=== PATIENT | male | born 1960 | race Caucasian/White ===

== ENCOUNTER → 2018-07-13 07:18 | Outpatient (CLI) | payer BC, OTHER, SELFPAY ==
[2018-07-13 08:59] LABS: Hematocrit 46.6 % (41-53); Hemoglobin 16.3 g/dL (13.5-17.5); Mean Corpuscular Hemoglobin 31.3 PG (26-34); Mean Corpuscular Volume 89.2 fL (80-100); Platelet Count 148 X10^3/uL (150-400); Red Blood Cell Count 5.23 X10^6/uL (4.5-5.9); Red Cell Distribution Width 13.5 % (11.6-14.8); White Blood Cell Count 5.7 X10^3/uL (4.5-11.0)
[2018-07-13 09:17] LABS: Neutrophils Absolute Manual 3933 /uL (3000-5900); Total Cells Counted 100
[2018-07-13 09:18] LABS: Rouleaux 1+
[2018-07-13 09:28] LABS: Alanine Aminotransferase 38 IU/L (21-72); Albumin 4.8 g/dL (3.5-5.0); Albumin Globulin Ratio 1.6 (1.0-2.8); Alkaline Phosphatase 76 U/L (38-126); Aspartate Aminotransferase 30 IU/L (17-59); BUN Creatinine Ratio 23.3 (6-22); Bilirubin Total 0.5 mg/dL (0.2-1.3); Blood Urea Nitrogen 21 mg/dL (9-20); Calcium 9.3 mg/dL (8.4-10.2); Carbon Dioxide 29 mmol/L (22-32); Chloride 101 mmol/L (98-107); Cholesterol 184 mg/dL (140-199); Estimated Glomerular Filt Rate > 60.0 mL/min (>60); Glucose 89 mg/dL (70-100); HDL Cholesterol 38 mg/dL (40-60); HEMOLYSIS < 15 (0-50); LDL Cholesterol Calculated 105 mg/dL (<100); Potassium 4.5 mmol/L (3.4-5.1); Sodium 144 mmol/L (137-145); Total Protein 7.8 g/dL (6.3-8.2); Triglycerides 205 mg/dL (35-150)
[2018-07-13 09:57] LABS: Thyroid Stimulating Hormone 1.69 uIU/mL (0.47-4.68)
== END ==
PROVIDERS: PCP Family Medicine; Visit Provider Family Medicine
DX: Z12.5 Encounter for screening for malignant neoplasm of prostate (principal); Z13.0 Encounter for screening for diseases of the blood and blood-forming organs and certain disorders involving the immune mechanism; Z13.220 Encounter for screening for lipoid disorders; Z13.29 Encounter for screening for other suspected endocrine disorder
CPT/HCPCS: 36415; 80053; 80061; 84153; 84443; 85025

== ENCOUNTER → 2019-07-02 07:45 | Outpatient (CLI) | payer BC, OTHER, SELFPAY ==
[2019-07-02 09:04] LABS: Cholesterol 210 mg/dL (140-199); Glucose 92 mg/dL (70-100); HDL Cholesterol 39 mg/dL (40-60); LDL Cholesterol Calculated 125 mg/dL (<100); Triglycerides 230 mg/dL (35-150)
[2019-07-02 09:36] LABS: Prostate Specific Antigen Scrn 1.22 ng/mL (0.1-4.0)
[2019-07-02 09:39] LABS: Hemoglobin A1C% w Est Avg Glu 5.1 % (4.0-6.0)
== END ==
PROVIDERS: Family Provider Family Medicine; PCP Family Medicine; Visit Provider Registered Nurse Women's Health Care, Ambulatory
DX: Z13.1 Encounter for screening for diabetes mellitus (principal); Z13.220 Encounter for screening for lipoid disorders; Z12.5 Encounter for screening for malignant neoplasm of prostate
CPT/HCPCS: 36415; 80061; 82947; 83036; G0103

== ENCOUNTER → 2020-09-29 14:31 | Outpatient (CLI) | payer OTHER, SELFPAY ==
[2020-09-29 15:59] LABS: COVID19 -Nasal RAPID Negative (Negative)
== END ==
PROVIDERS: Family Provider Family Medicine; PCP Family Medicine; Visit Provider Physician Assistant
DX: Z20.822 Contact with and (suspected) exposure to COVID-19 (principal)
CPT/HCPCS: 87635

== ENCOUNTER → 2021-09-17 20:01 | Outpatient (ROUT) | payer OTHER, SELFPAY | PROVIDERS: Family Provider Family Medicine; PCP Family Medicine; Visit Provider Ophthalmology | DX: H00.14 Chalazion left upper eyelid (principal); W55.03XA Scratched by cat, initial encounter | CPT/HCPCS: 87070; 87075; 87147; 87205 ==

== ENCOUNTER 2023-05-23 07:58 | Day surgery (SDC) | payer OTHER, SELFPAY ==
[2023-05-18 12:14] VITALS: BMI 25.7
[2023-05-23] VITALS (8 sets, daily range): BP systolic 117–124; BP diastolic 70–78; PULSE 76–88; RESP 10–19; TEMP 36.1–36.8; O2SAT 92–96; BMI 25.7
--- NOTE | 2023-05-23 08:24 | P.HP_ITS ---
History of Present Illness History of Present Illness Date Patient Seen: 05/23/23 Time Patient Seen: 08:25 Chief complaint: Left Hernia Repair - Inguinal Narrative: Hans is a 63-year-old man who has a left inguinal hernia. He has been needing to wear a truss. Please see the office note from last month for details. [facility] Medical History (Updated 05/18/23 @ 12:18 by Tianna Lucas RN) History of COVID-19 (05/18/21) Rosacea (~2010) Hearing loss (~2015) Surgical History (Updated 05/18/23 @ 12:18 by Tianna Lucas RN) History of ear, nose, and throat (ENT) surgery (07/2010) History of bunionectomy of right great toe (12/2009) History of bunionectomy of left great toe (12/1993) Hx of appendectomy Family History Father Age: 92 Pacemaker Brother History of prostatectomy Grandfather No problems noted. Grandmother No problems noted. Mother No problems noted. Grandfather No problems noted. Grandmother No problems noted. Social History household members: spouse Smoking Status: Never smoker alcohol intake: current substance use type: does not use Meds Home Medications and Allergies Home Medications Medication Instructions Recorded Confirmed Type No Known Home Medications 07/20/18 04/12/23 History Allergies Allergy/AdvReac Type Severity Reaction Status Date / Time No Known Allergies Allergy Uncoded 04/12/23 09:33 Exam Const General: healthy appearing Other: Left inguinal hernia Assessment & Plan Assessment and plan (1) Hernia, inguinal, left: Status: Acute Plan We discussed the risks and benefits of open left inguinal hernia repair with mesh. We discussed postoperative activity limitations. He would like to proceed.
[2023-05-23] MEDS: LACTATED RINGERS 1,000 ML 120 ML IV (08:34)
--- NOTE | 2023-05-23 08:47 | SUR.PREOP ---
Awaiting Anesthesia - Dr Jha
[2023-05-23] MEDS: CEFAZOLIN 2 GM/100 ML PREMIX 100 ML IV (09:10)
--- NOTE | 2023-05-23 09:32 | SUR.OPER ---
Supine on padded OR bed, head on pillow, arms secured on padded arm boards at <90 degrees abduction, legs uncrossed, safety belt at thigh, tape over blanket over lower legs.
[2023-05-23] MEDS: BUPIVACAINE 0.5% (PF) 30 ML, EPINEPHrine 0.15 MG INJ (09:34)
--- NOTE | 2023-05-23 10:25 | PM.OP.1 ---
Operative Date/Time/Diagnoses Date of procedure: 05/23/23 Time of procedure: 10:25 Pre-op diagnosis: Left inguinal hernia Post-op diagnosis: same Procedure & Clinicians Procedure: Open left inguinal hernia repair with mesh Same procedure as scheduled: Yes Surgeon: Amilcar Wyatt Anesthesia Type: General Operative Notes Procedure in detail: Preoperative antibiotic was administered. The patient was brought to the operating room and placed on the table in supine position general anesthesia was induced. The left groin was prepped and draped in the normal fashion and a time-out was performed. Roughly 10 mL of local anesthetic were injected into the skin and subcutaneous adipose tissue over the left groin. A 6 cm incision was made over the left inguinal canal. Dissection was carried down through the subcutaneous adipose tissue. A bridging vein was cauterized. We exposed the external oblique aponeurosis in the direction of the fibers. Additional local was injected deep to the aponeurosis. A 15 blade scalpel was used to juanita the external oblique aponeurosis. Metzenbaum scissors were used to carefully open the aponeurosis in the direction of the fibers taking care not to injure the underlying ilioinguinal nerve which was well seen and protected. We completely exposed the inguinal canal. The cord was dissected free from the inguinal ligament and floor of the inguinal canal and the external oblique aponeurosis was dissected off of the internal oblique taking care not to injure the hypogastric nerve. We encircled the cord with a [place] drain for retraction. There was an indirect defect with a cord lipoma. The cord lipoma was resected and discarded. The sac was dissected off the cord structures and allowed to fall back through the internal ring. There also appeared to be bulging from the floor of the inguinal canal through the direct space. We placed a polypropylene mesh over the inguinal canal floor. The mesh was secured with multiple interrupted 3-0 Prolene sutures to the pubic tubercle and shelving edge of the inguinal ligament as well as to the conjoint tendon medially. We overlapped the tails to recreate an internal ring and secured the medial tail to the inguinal ligament with additional sutures. We injected some more local into the fatty tissue in the inguinal canal and cord. Finally, we removed the Megan drain and closed the external oblique fascia with a running 3-0 Vicryl suture. Skin was closed with interrupted 3-0 Vicryl dermal sutures and a running 4 Monocryl subcuticular stitch. EBL 5 mL The patient was awakened and brought to recovery room. Post-operative Condition: stable Disposition: PACU
== END 2023-05-23 11:15 | disposition home or self-care (01) ==
PROVIDERS: Family Provider Family Medicine; PCP Family Medicine; Referring Provider Surgery; Visit Provider Surgery
PROC: (CPT 49505; principal; 2023-05-23 08:45)
DX: K40.90 Unilateral inguinal hernia, without obstruction or gangrene, not specified as recurrent (principal); D17.6 Benign lipomatous neoplasm of spermatic cord
CPT/HCPCS: 49505; J0171; J0690; J1100; J1885; J2250; J2405; J2704; J3010

== ENCOUNTER → 2023-07-18 07:15 | Outpatient (CLI) | payer OTHER, SELFPAY ==
[2023-07-18 09:16] LABS: Cholesterol 189 mg/dL (140-199); Glucose 84 mg/dL (80-110); HDL Cholesterol 43 mg/dL (40-60); LDL Cholesterol Calculated 123 mg/dL (<100); Triglycerides 114 mg/dL (35-150)
[2023-07-18 09:42] LABS: Prostate Specific Antigen Scrn 1.91 ng/mL (0.1-4.0)
== END ==
PROVIDERS: Family Provider Family Medicine; PCP Family Medicine; Referring Provider Family Medicine; Visit Provider Family Medicine
DX: Z13.9 Encounter for screening, unspecified (principal); Z12.5 Encounter for screening for malignant neoplasm of prostate
CPT/HCPCS: 36415; 80061; 82947; G0103

== ENCOUNTER 2024-10-21 12:55 | Emergency (ER) | payer OTHER, SELFPAY ==
[2024-10-21] VITALS (16 sets, daily range): BP systolic 99–129; BP diastolic 63–87; PULSE 75–145; RESP 10–24; TEMP 36.1–37.1; O2SAT 94–698; BMI 27.4
--- NOTE | 2024-10-21 12:57 | DI.RAD.S_ITS ---
PROCEDURE: XR CHEST 1V INDICATIONS: chest pain TECHNIQUE: One view of the chest was acquired. COMPARISON: None. FINDINGS: Surgical changes and devices: None. Lungs and pleura: Lungs are clear. No pleural effusions or pneumothorax. Mediastinum: Mediastinal contours appear normal. Heart size is normal. Bones and chest wall: No suspicious bony lesions. Overlying soft tissues appear unremarkable. IMPRESSION: No acute cardiopulmonary pathology. Dictated by: Nikita Garcia M.D. on 10/21/2024 at 13:35 Approved by: Nikita Garcia M.D. on 10/21/2024 at 13:35
--- NOTE | 2024-10-21 13:04 | EKG_ITS ---
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
[2024-10-21 13:32] LABS: Add Manual Diff / Slide Review NO; Basophils Absolute Auto 0 /uL (0-100); Basophils Percent Auto 0.8 % (0-2); Eosinophils Absolute Auto 100 /uL (0-450); Eosinophils Percent Auto 2.5 % (2-4); Hematocrit 49.4 % (41-53); Hemoglobin 16.9 g/dL (13.5-17.5); Lymphocytes Absolute Auto 1100 /uL (1100-4500); Lymphocytes Percent Auto 20.3 % (25-40); Mean Corpuscular HGB Conc 34.2 % (30-36); Mean Corpuscular Hemoglobin 31.1 PG (26-34); Monocytes Absolute Auto 600 /uL (0-900); Monocytes Percent Auto 10.4 % (3-14); Neutrophils Absolute Auto 3500 /uL (1500-7000); Platelet Count 150 X10^3/uL (150-400); Red Blood Cell Count 5.43 X10^6/uL (4.5-5.9); Red Cell Distribution Width 13.6 % (11.6-14.8); White Blood Cell Count 5.4 X10^3/uL (4.5-11.0)
[2024-10-21] MEDS: dilTIAZem 25 MG/5 ML SDV 10 MG IV (13:35)
[2024-10-21 13:43] LABS: INR 1.1 (0.9-1.3); Prothrombin Time 12.1 SECONDS (9.4-12.5)
[2024-10-21 13:46] LABS: PTT Partial Thromboplastin Tim 38 SECONDS (25.1-36.5)
[2024-10-21 13:48] LABS: Alanine Aminotransferase 30 IU/L (<50); Albumin 4.9 g/dL (3.5-5.0); Albumin Globulin Ratio 1.6 (1.0-2.8); Alkaline Phosphatase 76 U/L (38-126); Aspartate Aminotransferase 38 IU/L (17-59); BUN Creatinine Ratio 17.2 (6-22); Bilirubin Total 1.2 mg/dL (0.2-1.3); Blood Urea Nitrogen 16 mg/dL (9-20); Calcium 9.8 mg/dL (8.4-10.2); Carbon Dioxide 25 mmol/L (22-32); Chloride 104 mmol/L (98-107); Creatine Kinase 77 U/L (55-170); Estimated Glomerular Filt Rate > 60 mL/min (>60); Globulin 3.1 g/dL (1.7-4.1); Glucose 114 mg/dL (80-110); HEMOLYSIS < 15 (0-50); Lipase 69 U/L (23-300); Magnesium 2.1 mg/dL (1.6-2.3); Potassium 4.2 mmol/L (3.4-5.1); Sodium 141 mmol/L (137-145)
[2024-10-21 14:00] LABS: NT-proBNP (BNP-Adult 18+) 39 pg/mL (<125); Troponin I < 0.012 ng/mL (0.01-0.034)
--- NOTE | 2024-10-21 14:44 | ED_ITS ---
HPI - Arrhythmia/Palpitations General Chief Complaint: Arrhythmia/Palpitations Stated Complaint: AFIB Time Seen by Provider: 10/21/24 13:19 Source: patient Mode of arrival: Ambulatory History of Present Illness HPI narrative: Patient is a healthy 63-year-old takes no medications presenting today with heart palpitations. He works at the [employer], was sitting at his desk when he felt his heart was beating fast. EKGs was done the [employer] he was found to have atrial flutter with a heart rate in the 130s presented to the ED with the same. He was no prior history of atrial fibrillation or atrial flutter. He was given 10 mg of diltiazem in his now completely asymptomatic. He has no chest pain no shortness of breath no abdominal pain nausea or vomiting. He reports that he had a normal day yesterday he does not report feeling any symptoms. Related Data Previous Rx's Medication Instructions Recorded metoprolol succinate 25 mg 12.5 mg (1/2 x 25 mg) PO BID #30 10/21/24 tablet,extended release 24 hr tabs Allergies Allergy/AdvReac Type Severity Reaction Status Date / Time No Known Drug Allergies Allergy Verified 10/21/24 13:05 Patient History Medical History History of COVID-19 (05/18/21) Rosacea (~2010) Hearing loss (~2015) Surgical History History of ear, nose, and throat (ENT) surgery (07/2010) History of bunionectomy of right great toe (12/2009) History of bunionectomy of left great toe (12/1993) Hx of appendectomy Family History Father Age: 94 Pacemaker Brother History of prostatectomy Grandfather No problems noted. Grandmother No problems noted. Mother No problems noted. Grandfather No problems noted. Grandmother No problems noted. Social History household members: spouse Smoking Status: Never smoker alcohol intake: current substance use type: does not use Smoking Status: Never smoker alcohol intake frequency: a few times a week Exam Initial Vital Signs Initial Vital Signs: Vital Signs Temperature 97.0 F L 10/21/24 13:05 Pulse Rate 138 H 10/21/24 13:05 Respiratory Rate 16 10/21/24 13:05 Blood Pressure 113/73 10/21/24 13:05 Pulse Oximetry 98 10/21/24 13:05 Oxygen Delivery Method Room Air 10/21/24 13:05 GENERAL: Alert pleasant well-appearing 64-year-old male and in no acute distress. HEENT: Head atraumatic,EOMI, pupils reactive, face symmetric, moist mucous membranes CARDIOVASCULAR: Tachycardic irregular. RESPIRATORY: Breath sounds equal bilaterally, no wheezes rales or rhonchi. ABDOMEN: Soft, nontender. Normoactive bowel sounds all 4 quadrants. No guarding or rebound. EXTREMITIES: Normal range of motion, no clubbing or edema. Neurovascularly intact NEUROLOGICAL: Alert and oriented x4.Normal gait and speech. Cranial nerves II through XII grossly intact. SKIN: Warm, dry, no laceration, no petechiae, no rashes or lesions. Scores CHADS-VASc Congestive heart failure: no Hypertension: no Age 75 years or older: no Diabetes mellitus: no Stroke, TIA, or TE: no Vascular disease: no Age 65 to 74 years: no Sex category (female): Male CHADS-VASc Score: 0 Course Orders Ordered: ED Orders 10/21/24 12:57 XR chest 1V Stat EKG-12 Lead Stat 10/21/24 13:20 Complete Blood Count AUTO DIFF Stat Comprehensive Metabolic Panel Stat Lipase Stat Magnesium Stat NT-proBNP (BNP-Adult 18+) Stat PTT Partial Thromboplastin Dov Stat Prothrombin Time INR Stat Troponin & CK Cardiac Panel Stat Discontinued Medications Aspirin (Aspirin 81 Mg Chew Tab) 324 mg PO NOW ONE Stop: 10/21/24 12:58 Last Admin: 10/21/24 14:10 Dose: Not Given Documented By: Diltiazem HCl (Diltiazem 25 Mg/5 Ml Sdv) 10 mg IV NOW ONE Stop: 10/21/24 13:20 Last Admin: 10/21/24 13:35 Dose: 10 mg Documented By: Metoprolol Succinate (Metoprolol Er 25 Mg Tablet) 25 mg PO NOW ONE Stop: 10/21/24 15:11 Last Admin: 10/21/24 15:14 Dose: 25 mg Documented By: ESME Vital Signs Vital signs: Vital Signs - 8 hr 10/21/24 13:05 10/21/24 13:15 10/21/24 13:15 Temperature 97.0 F L Pulse Rate 138 H 139 H Respiratory Rate 16 Blood Pressure 113/73 120/80 Pulse Oximetry 98 97 Oxygen Delivery Method Room Air 10/21/24 13:30 10/21/24 13:30 10/21/24 13:35 Temperature Pulse Rate 111 H 145 H Respiratory Rate 10 L Blood Pressure 120/63 122/87 Pulse Oximetry 98 Oxygen Delivery Method 10/21/24 14:00 10/21/24 14:00 10/21/24 14:30 Temperature Pulse Rate 91 H 97 H Respiratory Rate 24 22 Blood Pressure 120/81 119/79 Pulse Oximetry 97 98 Oxygen Delivery Method Room Air 10/21/24 14:30 10/21/24 15:00 10/21/24 15:00 Temperature Pulse Rate 75 101 H Respiratory Rate 12 12 Blood Pressure 122/77 Pulse Oximetry 95 95 Oxygen Delivery Method 10/21/24 15:30 10/21/24 15:30 10/21/24 16:00 Temperature Pulse Rate 90 Respiratory Rate 15 Blood Pressure 110/83 110/79 Pulse Oximetry 97 Oxygen Delivery Method 10/21/24 16:00 10/21/24 16:30 10/21/24 16:30 Temperature Pulse Rate 98 H 123 H Respiratory Rate 15 16 Blood Pressure 99/68 Pulse Oximetry 97 97 Oxygen Delivery Method 10/21/24 17:00 10/21/24 17:00 10/21/24 17:06 Temperature Pulse Rate 101 H 98 H Respiratory Rate 12 Blood Pressure 100/65 110/75 Pulse Oximetry 96 Oxygen Delivery Method 10/21/24 17:08 10/21/24 17:08 10/21/24 17:10 Temperature Pulse Rate 113 H 103 H Respiratory Rate 15 17 Blood Pressure 129/86 Pulse Oximetry 96 94 Oxygen Delivery Method 10/21/24 17:10 10/21/24 17:30 10/21/24 17:30 Temperature Pulse Rate 84 Respiratory Rate 14 Blood Pressure 117/81 105/82 Pulse Oximetry 96 Oxygen Delivery Method 10/21/24 18:00 Temperature 98.7 F Pulse Rate 85 Respiratory Rate 19 Blood Pressure 108/78 Pulse Oximetry 698 H Oxygen Delivery Method Room Air MDM - Arrhythmia/Palpitations Lab Data 10/21/24 13:20 10/21/24 13:20 Labs: Lab Results 10/21/24 Range/Units 13:20 WBC 5.4 (4.5-11.0) X10^3/uL RBC 5.43 (4.5-5.9) X10^6/uL Hgb 16.9 (13.5-17.5) g/dL Hct 49.4 (41-53) % MCV 91.0 (80-100) fL MCH 31.1 (26-34) PG MCHC 34.2 (30-36) % RDW 13.6 (11.6-14.8) % Plt Count 150 (150-400) X10^3/uL Neut % (Auto) 66.0 (50-75) % Lymph % (Auto) 20.3 L (25-40) % [place] % (Auto) 10.4 (3-14) % Eos % (Auto) 2.5 (2-4) % Baso % (Auto) 0.8 (0-2) % Neut # (Auto) 3500 (3819-3418) /uL Lymph # (Auto) 1100 (1873-8034) /uL Franklin # (Auto) 600 (0-900) /uL Eos # (Auto) 100 (0-450) /uL Baso # (Auto) 0 (0-100) /uL PT 12.1 (9.4-12.5) SECONDS INR 1.1 (0.9-1.3) APTT 38 H (25.1-36.5) SECONDS Sodium 141 (137-145) mmol/L Potassium 4.2 (3.4-5.1) mmol/L Chloride 104 (98-107) mmol/L Carbon Dioxide 25 (22-32) mmol/L BUN 16 (9-20) mg/dL Creatinine 0.93 (0.66-1.25) mg/dL Estimated GFR > 60 (>60) mL/min BUN/Creatinine Ratio 17.2 (6-22) Glucose 114 H (80-110) mg/dL Calcium 9.8 (8.4-10.2) mg/dL Magnesium 2.1 (1.6-2.3) mg/dL Total Bilirubin 1.2 (0.2-1.3) mg/dL AST 38 (17-59) IU/L ALT 30 (<50) IU/L Alkaline Phosphatase 76 (38-126) U/L Total Creatine Kinase 77 (55-170) U/L Troponin I < 0.012 (0.01-0.034) ng/mL NT-Pro-B Natriuret Pep 39 (<125) pg/mL Total Protein 8.0 (6.3-8.2) g/dL Albumin 4.9 (3.5-5.0) g/dL Globulin 3.1 (1.7-4.1) g/dL Albumin/Globulin Ratio 1.6 (1.0-2.8) Lipase 69 (23-300) U/L Imaging Data Chest x-ray: Radiologist's Impresson: PROCEDURE: XR CHEST 1V INDICATIONS: chest pain TECHNIQUE: One view of the chest was acquired. COMPARISON: None. FINDINGS: Surgical changes and devices: None. Lungs and pleura: Lungs are clear. No pleural effusions or pneumothorax. Mediastinum: Mediastinal contours appear normal. Heart size is normal. Bones and chest wall: No suspicious bony lesions. Overlying soft tissues appear unremarkable. IMPRESSION: No acute cardiopulmonary pathology. Dictated by: Nikita Garcia M.D. on 10/21/2024 at 13:35 ECG Data Attestation: I personally reviewed and interpreted this ECG as follows: Prior ECG tracings: available for review (from [facility]) Interpretation: Atrial flutter rate [address] changes MDM Narrative Medical decision making narrative: MDM CC: Palpitations Complicating co-morbidities: None family history does have father of prostate cancer brother was also diagnosed. He was followed closely by a urologist and reports his PSA has been within normal limits Medical records reviewed: [ ] Differential considered: [ ] Exam documented above, pertinent findings include: Alert well-appearing 64-year-old male irregular heart rate Lab Test results independently reviewed as above. Pertinent findings: No anemia no leukocytosis No electrolyte abnormalities troponin is negative Independently reviewed EKG as above Atrial flutter no ischemia Imaging studies independently reviewed: Chest x-ray no acute cardiopulmonary process Consultations: 1729 Dr. Moreno PCP updated patient's symptoms test results we will see patient and get appropriate follow-up Treatments: Diltiazem metoprolol 25 and ask Re-evaluations: Heart rate did improve with diltiazem then started to increase again so he was given a p.o. dose of metoprolol Discussion: Tachycardic regular patient 64-year-old male presenting today with heart palpitations. He was found to be in atrial flutter with RVR. He was given 10 mg of diltiazem her rate slowed significantly into the 90s. He then a. He was trying to cardiovert multiple times while in the ED he would go into sinus rhythm and then quickly back into an atrial fibrillation. During that time he remained completely asymptomatic no chest pain or palpitations. Difficult to say if this is new for patient or if he just became symptomatic today. I do not feel comfortable cardioverting him. He is rate controlled. CHADS-VASc 0 Heart rate go into an atrial flutter he was given metoprolol p.o. heart rate remained anywhere from 90-110. At this time we will give him metoprolol blood pressure did decrease slightly with 25 of metoprolol so we will give him 4.5 twice daily along with aspirin. He continues to be completely asymptomatic. Discharge Plan Departure Patient Disposition: Home Clinical Impression: New onset atrial flutter Instructions: DI for Atrial Flutter Activity Restrictions/Additional Instructions: *You have been diagnosed with new onset atrial flutter *What to do: This time you will need to see cardiology you need an ultrasound of your heart. This does put you at risk for stroke. I do recommend having Holter monitor, consider getting watch *Continue to take medications as directed Metoprolol 12.5 mg twice a day Aspirin 81 mg daily *Follow up with your primary care provider in 2-3 days or call [phone] Moncada to schedule appointment *Return to ER if you should have increasing chest pain palpitations or any new, worsening or concerning symptoms Prescriptions: New metoprolol succinate 25 mg tablet extended release 24 hr 12.5 mg PO BID Qty: 30 0RF Referrals: Chelsea Garg MD [Primary Care Provider] - Stand Alone Forms: Patient Portal/API/Survey
[2024-10-21] MEDS: METOPROLOL ER 25 MG TABLET PO (15:14)
== END 2024-10-21 18:01 | disposition home or self-care (01) ==
PROVIDERS: Emergency Provider Emergency Medicine; Family Provider Family Medicine; PCP Family Medicine
DX: I48.92 Unspecified atrial flutter (principal); R00.0 Tachycardia, unspecified
CPT/HCPCS: 36415; 71045; 80053; 82550; 83690; 83735; 83880; 84484; 85025; 85610; 85730; 93005; 96374; 99284

== ENCOUNTER → 2025-04-24 07:15 | Outpatient (CLI) | payer OTHER, SELFPAY ==
[2025-04-24 08:12] LABS: Hemoglobin A1C% w Est Avg Glu 5.4 % (4.0-6.0)
[2025-04-24 08:45] LABS: Alanine Aminotransferase 22 IU/L (<50); Albumin 4.6 g/dL (3.5-5.0); Albumin Globulin Ratio 1.8 (1.0-2.8); Alkaline Phosphatase 71 U/L (38-126); Blood Urea Nitrogen 19 mg/dL (9-20); Calcium 9.2 mg/dL (8.4-10.2); Carbon Dioxide 26 mmol/L (22-32); Chloride 103 mmol/L (98-107); Cholesterol 172 mg/dL (140-199); Estimated Glomerular Filt Rate > 60 mL/min (>60); Globulin 2.6 g/dL (1.7-4.1); Glucose 91 mg/dL (70-99); HDL Cholesterol 42 mg/dL (40-60); HEMOLYSIS < 15 (0-50); Potassium 4.3 mmol/L (3.4-5.1); Sodium 138 mmol/L (137-145); Total Protein 7.2 g/dL (6.3-8.2); Triglycerides 134 mg/dL (35-150)
== END ==
PROVIDERS: Urology; Family Provider Family Medicine; PCP Family Medicine; Referring Provider Family Medicine
DX: R97.20 Elevated prostate specific antigen [PSA] (principal); R73.09 Other abnormal glucose; E78.5 Hyperlipidemia, unspecified; Z13.1 Encounter for screening for diabetes mellitus
CPT/HCPCS: 36415; 80053; 80061; 83036; 84153; 84154